=== PATIENT | female | born 1990 | race African-American/Black ===

== ENCOUNTER 2020-11-30 00:02 | Emergency (ER) | payer SELFPAY ==
[~2020-11-30] VITALS: Ht 162.6 cm; Wt 86.0 kg
[2020-11-30] MEDS ORDERED: LIDOCAINE HCL/EPINEPHRINE 1%-EPI 1:100,000 10 ML VIAL IJ ONE (02:30)
[2020-11-30] MEDS ORDERED: LIDOCAINE HCL/EPINEPHRINE 1%-EPI 1:100,000 20 ML VIAL INFIL SCH (02:45)
[2020-11-30] MEDS ORDERED: BACITRACIN ZINC OINT UDPKT TOP ONE (03:00)
[2020-11-30] MEDS ORDERED: ACET650T37 MT (03:01)
[2020-11-30] MEDS ORDERED: CEPH500C2 MT (03:01)
[2020-11-30 03:42] VITALS: BP 115/66
== END 2020-11-30 03:47 | disposition home or self-care (01) ==
LOC: ER 00:02
DX: S91.209A Unspecified open wound of unspecified toe(s) with damage to nail, initial encounter (principal); J45.909 Unspecified asthma, uncomplicated; Z88.6 Allergy status to analgesic agent; Z98.890 Other specified postprocedural states
CPT/HCPCS: 11730; 99284; J3490